=== PATIENT | female | born 1970 | race African-American/Black ===

== ENCOUNTER → 2016-12-21 | Outpatient (CLI) | payer BC, OTHER ==
--- NOTE | 2016-12-22 09:46 | RAD ---
DATE: 12/21/2016 EXAM: DIGITAL SCREEN BILAT W/CAD HISTORY: Routine screening COMPARISON: 12/09/2015 This study was interpreted with the benefit of Computerized Aided Detection (CAD). The breast parenchyma is heterogeneously dense, which could reduce sensitivity of mammography. Breast parenchyma level C. FINDINGS: No new or enlarging breast densities are seen. No suspicious calcifications are evident. IMPRESSION: Stable mammograms without evidence of malignancy. BI-RADS CATEGORY: 1 NEGATIVE RECOMMENDED FOLLOW-UP: 12M 12 MONTH FOLLOW-UP PQRS compliance statement: Patient information was entered into a reminder system with a target due date for the next mammogram. Mammography is a sensitive method for finding small breast cancers, but it does not detect them all and is not a substitute for careful clinical examination. A negative mammogram does not negate a clinically suspicious finding and should not result in delay in biopsying a clinically suspicious abnormality. "Our facility is accredited by the [employer] Mammography [employer]."
== END | disposition home or self-care (01) ==
LOC: MAMMO 14:46
PROVIDERS: ATTEND Family Medicine
DX: Z12.31 Encounter for screening mammogram for malignant neoplasm of breast (principal)
CPT/HCPCS: G0202; 77067

== ENCOUNTER → 2018-01-12 | Outpatient (CLI) | payer BC ==
--- NOTE | 2018-01-13 11:26 | RAD ---
DATE: 01/12/2018 EXAM: MAMMO WINDY SCREENING BILATERAL HISTORY: Routine screening COMPARISON: 12/21/2016 This study was interpreted with the benefit of Computerized Aided Detection (CAD). Breast Density: HETERO The breast parenchyma is heterogenously dense, which could reduce sensitivity of mammography. Breast parenchyma level C. FINDINGS: 2-D and 3-D tomosynthesis imaging was performed in CC and MLO projections. No new or enlarging breast densities are seen. No suspicious microcalcifications are evident. IMPRESSION: Stable mammograms without evidence of malignancy. BI-RADS CATEGORY: 2 BENIGN FINDING(S) RECOMMENDED FOLLOW-UP: 12M 12 MONTH FOLLOW-UP PQRS compliance statement: Patient information was entered into a reminder system with a target due date for the next mammogram. Mammography is a sensitive method for finding small breast cancers, but it does not detect them all and is not a substitute for careful clinical examination. A negative mammogram does not negate a clinically suspicious finding and should not result in delay in biopsying a clinically suspicious abnormality. "Our facility is accredited by the [employer] Mammography [employer]."
== END | disposition home or self-care (01) ==
LOC: MAMMO 13:00
PROVIDERS: ATTEND Family Medicine
DX: Z12.31 Encounter for screening mammogram for malignant neoplasm of breast (principal)
CPT/HCPCS: 77063; 77067

== ENCOUNTER 2018-03-10 17:47 | Emergency (ER) | payer BC ==
[~2018-03-10] VITALS: Ht 162.6 cm; Wt 95.3 kg
[2018-03-10 18:00] VITALS: BP 148/101
[2018-03-10] MEDS ORDERED: LISI-334 PO (18:14)
--- NOTE | 2018-03-10 18:51 | PHYS DOC ---
Past Medical History Past Medical History: Hypertension Past Surgical History: Other Additional Past Surgical Histo: CARPAL TUNNEL Alcohol Use: Occasionally Drug Use: Marijuana Adult General Chief Complaint Chief Complaint: KNEE INJURY HPI HPI Patient is a 48 year old AA female who presents to the emergency room with complaints of right knee pain. Patient states that she fell when she slipped on ice at [employer] week ago and she has had pain in her right knee since. Patient denies any popping of her knee or any instability. States she was seen by her primary care doctor yesterday who x-rayed her right shoulder and told her it was negative for any acute findings. Patient states her doctor did not x- ray her right knee though and that is why she is here. Review of Systems Review of Systems Constitutional: Denies fever or chills [] Musculoskeletal: See history of present illness Integument: Denies rash or skin lesions [] Neurologic: Denies headache, focal weakness or sensory changes [] Allergies Allergies Allergies Coded Allergies Type Severity Reaction Last Updated Verified No Known Drug Allergies 03/10/18 No Physical Exam Physical Exam Constitutional: Well developed, well nourished, no acute distress, non-toxic appearance, obese. [] HENT: Normocephalic, atraumatic, bilateral external ears normal, nose normal. [] Eyes: conjunctiva normal, no discharge. [] Neck: Normal range of motion, no stridor. [] Skin: Warm, dry, no erythema, no rash. [] Extremities: No cyanosis, no clubbing, ROM intact, no edema; right anterior knee tender to palpation, negative stress and valgus testing, negative anterior and posterior drawer testing, no deformity or crepitus Neurologic: Alert and oriented X 3, normal motor function, normal sensory function, no focal deficits noted. [] Psychologic: Affect normal, judgement normal, mood normal. [] Current Patient Data Vital Signs Vital Signs Date Time Temp Pulse Resp B/P (MAP) Pulse Ox O2 Delivery O2 Flow Rate FiO2 03/10/18 18:00 97.8 98 18 148/101 (117) 100 Room Air 97.8 EKG EKG [] Radiology/Procedures Radiology/Procedures R Knee x-ray negative for any acute fracture or dislocation read by Dr. Chamberlain. [] Course & Med Decision Making Course & Med Decision Making Pertinent Labs and Imaging studies reviewed. (See chart for details) Dx: R knee contusion, R knee pain rest, elevate, ice, and wear Jacob wrap provided. Follow up with Dr. Arana if symptoms persist, tylenol or ibuprofen as needed for pain. Return to ER if sx worsen. Patient verbalized an understanding of home care, medications, follow-up, and return to ED instructions and was in agreement with the plan of care. [] Dragon Disclaimer Dragon Disclaimer This electronic medical record was generated, in whole or in part, using a voice recognition dictation system. Departure Departure Impression: Primary Impression: Contusion of right knee, initial encounter Additional Impressions: Right anterior knee pain Fall from slipping on ice Disposition: HOME, SELF-CARE Condition: STABLE Referrals: OTTO REDMOND MD (PCP) CAROLE ARANA MD Patient Instructions: Contusion, [id number]-[id number], Knee Pain, [id number] Additional Instructions: Recommend application of ice, elevation, and rest of affected extremity. Wear the jacob wrap that was placed for comfort. Follow up with Dr. Arana or your PCP if symptoms persist. Return to the ER if your symptoms worsen. Problem Qualifiers Additional Impressions: Fall from slipping on ice Encounter type: initial encounter Qualified Codes: W00.9XXA - Unspecified fall due to ice and snow, initial encounter SAIMA BRUMFIELD APRN Mar 10, 2018 18:51
--- NOTE | 2018-03-10 18:57 | RAD ---
Indication:right knee pain after fall on ice 1 week ago TECHNIQUE: 3 views of the right knee COMPARISON:None FINDINGS: No acute fracture-dislocation. No suprapatellar effusion. Mild tricompartmental osteoarthritis. IMPRESSION: As above. Electronically signed by: Keith Dawn DO (03/10/2018 6:53 PM) [facility]
== END 2018-03-10 19:01 | disposition home or self-care (01) ==
LOC: ER 17:47
DX: S80.01XA Contusion of right knee, initial encounter (principal); I10 Essential (primary) hypertension; W00.0XXA Fall on same level due to ice and snow, initial encounter; Y93.89 Activity, other specified; Y92.89 Other specified places as the place of occurrence of the external cause; Y99.8 Other external cause status
CPT/HCPCS: 73562; 99284

== ENCOUNTER → 2019-02-15 | Outpatient (CLI) | payer BC ==
[~2019-02-15] MED LIST: LISI-334 PO
--- NOTE | 2019-02-15 16:51 | RAD ---
DATE: 02/15/2019 EXAM: MAMMO WINDY SCREENING BILATERAL HISTORY: Routine screening COMPARISON: 01/12/2018, 12/21/2016, 12/09/2015, 11/27/2014 mammographic exams This study was interpreted with the benefit of Computerized Aided Detection (CAD). Breast Density: HETERO The breast parenchyma is heterogenously dense, which could reduce sensitivity of mammography. Breast parenchyma level C. FINDINGS: No suspicious calcific lesion, mass, or distortion. IMPRESSION: Stable BI-RADS CATEGORY: 1 NEGATIVE RECOMMENDED FOLLOW-UP: 12M 12 MONTH FOLLOW-UP PQRS compliance statement: Patient information was entered into a reminder system with a target due date for the next mammogram. Mammography is a sensitive method for finding small breast cancers, but it does not detect them all and is not a substitute for careful clinical examination. A negative mammogram does not negate a clinically suspicious finding and should not result in delay in biopsying a clinically suspicious abnormality. "Our facility is accredited by the [employer] Mammography [employer]."
== END | disposition home or self-care (01) ==
LOC: MAMMO 10:25
PROVIDERS: ATTEND Family Medicine
DX: Z12.31 Encounter for screening mammogram for malignant neoplasm of breast (principal); N64.89 Other specified disorders of breast
CPT/HCPCS: 77063; 77067

== ENCOUNTER → 2019-02-15 | Outpatient (CLI) | payer BC ==
--- NOTE | 2019-02-15 12:09 | RAD ---
EXAM: MRI LEFT KNEE DATE: 02/15/2019 10:30 AM CLINICAL INDICATION: Left knee pain, fall 3 weeks ago COMPARISON: None. TECHNIQUE: Multiplanar, multisequence MRI of the left knee was performed without contrast. FINDINGS: Small left knee joint effusion. Prominent suprapatellar plica. Complex multiloculated Saleh's cyst is seen. Edema tracking inferiorly along the posterior medial lower leg, likely recent partial rupture. ACL and PCL are intact. Small ACL ganglion is incidentally seen. Mild edema about the MCL likely low-grade sprain or reactive signal change. The fibular collateral ligament, biceps femoris, IT band and popliteus are intact. Extensor mechanism is intact. Neutral patellar tracking. Lateral meniscus: Complex tear posterior horn-body lateral meniscus. Medial meniscus: Intact Chondral fissuring at the lateral compartment with subchondral edema and cystic change. Bulky lateral compartment osteophytes are seen. T1 marrow signal is grossly preserved. No evidence for fracture or osteonecrosis. IMPRESSION: 1. Mild increased signal about the MCL, likely low-grade sprain. 2. Multiloculated Saleh's cyst with edema tracking inferiorly, likely recent partial rupture 3. Lateral compartment predominant osteoarthritis with chondromalacia and bulky osteophytes. 4. No definite fracture or osteonecrosis. Electronically signed by: Marcial Cerna MD (02/15/2019 12:06 PM) [id number]
== END | disposition home or self-care (01) ==
LOC: MRI 10:06
PROVIDERS: ATTEND Orthopaedic Surgery
DX: S83.272A Complex tear of lateral meniscus, current injury, left knee, initial encounter (principal); M17.12 Unilateral primary osteoarthritis, left knee; M25.462 Effusion, left knee; M71.22 Synovial cyst of popliteal space [Baker], left knee; M94.262 Chondromalacia, left knee; W19.XXXA Unspecified fall, initial encounter; Y93.89 Activity, other specified; Y92.89 Other specified places as the place of occurrence of the external cause; Y99.8 Other external cause status
CPT/HCPCS: 73721

== ENCOUNTER → 2020-07-08 | Outpatient (CLI) | payer BC ==
[~2020-07-08] MED LIST changes: -LISI-334 PO; +LISI20TA18 PO
--- NOTE | 2020-07-09 16:05 | RAD ---
DATE: 07/08/2020 EXAM: MAMMO WINDY SCREENING BILATERAL HISTORY: Screening COMPARISON: 02/15/2019, 01/12/2018, 12/21/2016 This study was interpreted with the benefit of Computerized Aided Detection (CAD). Breast Density: HETERO The breast parenchyma is heterogenously dense, which could reduce sensitivity of mammography. Breast parenchyma level C. FINDINGS: There is a 8 mm nodule at 2:00, 13 cm posterior to the nipple in the left breast. This is best seen on tomosynthesis views (CC image 26 of 61 and MLO image 20 of 73). No suspicious calcification or architectural distortion in either breast. No mass in the right breast. IMPRESSION: 8 mm nodule at 2:00, 13 cm posterior to the nipple in the left breast. Recommend spot compression CC and MLO views, and possible ultrasound further evaluate. BI-RADS CATEGORY: 0 INCOMPLETE: NEEDS ADDITIONAL IMAGING EVALUATION AND/OR PRIOR MAMMOGRAMS FOR COMPARISON. RECOMMENDED FOLLOW-UP: ADD ADDITIONAL IMAGING PQRS compliance statement: Patient information was entered into a reminder system with a target due date for the next mammogram. Mammography is a sensitive method for finding small breast cancers, but it does not detect them all and is not a substitute for careful clinical examination. A negative mammogram does not negate a clinically suspicious finding and should not result in delay in biopsying a clinically suspicious abnormality. "Our facility is accredited by the [employer] Mammography Program."
== END ==
LOC: MAMMO 13:45
PROVIDERS: ATTEND Family Medicine
DX: Z12.31 Encounter for screening mammogram for malignant neoplasm of breast (principal); N64.89 Other specified disorders of breast
CPT/HCPCS: 77063; 77067

== ENCOUNTER → 2020-07-28 | Outpatient (CLI) | payer BC ==
--- NOTE | 2020-07-28 11:11 | RAD ---
EXAMINATION: MG DIAGNOSTICUNILAT MAMMO, US BREAST LT History: Callback from screening mammogram for left breast mass Comparison: Screening mammogram 07/08/2020. Technique: Left breast spot compression CC and MLO views were obtained. Focused ultrasound of the lef t breast at 2:00 posterior depth was performed.. Findings: Breast Tissue Density C : The breasts are heterogeneously dense, which may obscure small masses. The mass at 2:00, 12-13 cm from the nipple persists on spot compression. Focused ultrasound of the left breast at 2:00 11 cm from the nipple demonstrates an anechoic, circums cribed simple cyst measuring 9 x 8 x 6 cm. There is a second anechoic, circumscribed simple cyst at 2 :30, 12 cm the nipple measuring 1.1 x 0.9 x 0.8 cm. No suspicious mass. IMPRESSION: Benign simple cysts at 2:00 and 2:30, 11 and 12 cm from the nipple in the left breast, correlating wi th the mammographic abnormality. No evidence of malignancy. BI-RADS category 2: Benign findings. RECOMMENDATION: Recommend annual screening mammogram in 12 months. Patient information is entered into the reminder system with a target due date for the next screening mammogram. Mammography is the most sensitive method for finding small breast cancers, but it does not detect the m all and is not a substitute for careful clinical examination. A negative mammogram does not negate a clinically suspicious finding and should not result in delay in biopsying a clinically suspicious a bnormality. "Our facility is accredited by the [employer] Mammography Program." Electronically signed by: Qian Wu MD (07/28/2020 11:08 AM) [id number]
== END ==
LOC: MAMMO 10:38
PROVIDERS: ATTEND Family Medicine
DX: N60.02 Solitary cyst of left breast (principal); R92.8 Other abnormal and inconclusive findings on diagnostic imaging of breast; R92.2 Inconclusive mammogram
CPT/HCPCS: 76641; 77065

== ENCOUNTER 2020-10-17 08:47 | Emergency (ER) | payer BC ==
[~2020-10-17] VITALS: Ht 162.6 cm; Wt 92.7 kg
[2020-10-17 09:39] LABS: BASO # 0.1 x10^3/uL (0.0-0.2); BASO % 1 % (0-3); EOS # 0.2 x10^3/uL (0.0-0.7); EOS % 2 % (0-3); HEMATOCRIT 38.5 % (36.0-47.0); HEMOGLOBIN 13.2 g/dL (12.0-15.5); LYMPH # 2.4 x10^3/uL (1.0-4.8); LYMPH % 25 % (24-48); MEAN CORPUSCULAR HEMOGLOBIN 31 pg (25-35); MEAN CORPUSCULAR HGB CONC 34 g/dL (31-37); MEAN CORPUSCULAR VOLUME 89 fL (79-100); MONO % 11 % (0-9); NEUT % 61 % (31-73); PLATELET COUNT 346 x10^3/uL (140-400); RED BLOOD COUNT 4.31 x10^6/uL (3.50-5.40); RED CELL DISTRIBUTION WIDTH 14.6 % (11.5-14.5); WHITE BLOOD COUNT 9.8 x10^3/uL (4.0-11.0)
[2020-10-17 09:44] LABS: CALCIUM 9.9 mg/dL (8.5-10.1); CREATININE 0.7 mg/dL (0.6-1.0); GFR 107.6; POTASSIUM 3.6 mmol/L (3.5-5.1)
[2020-10-17] MEDS ORDERED: CONTRAST GIVEN. MC PRN (10:00)
[2020-10-17] MEDS ORDERED: IOHEXOL 300 MG/ML 100ML VIAL. IV ONE (10:00)
--- NOTE | 2020-10-17 10:25 | PHYS DOC ---
Past Medical History Past Medical History: Hypertension Past Surgical History: Other Additional Past Surgical Histo: CARPAL TUNNEL Smoking Status: Never Smoker Alcohol Use: None Drug Use: Marijuana General Adult EDM: Chief Complaint: DIZZY/LIGHT HEADED HPI: HPI: Patient is a 50 year old female with history of HTN on lisinopril who presents with dizziness for the past 4 days. Dizziness is made worse by laying down and improves with sitting upright. Worse with head movements. States that if she sits upright for a long period of time vertigo subsides. If she is moving she feels off balance and does have a sensation of vertigo. She states that she has been stumbling sometimes while walking. Denies any problems with coordination in her upper extremities. Denies any speech difficulty, double vision, facial asymmetry, extremity weakness. No history of stroke/CVA in the past Review of Systems: Review of Systems: Constitutional: Denies fever or chills. [] Eyes: Denies change in visual acuity. [] HENT: Denies nasal congestion or sore throat. [] Respiratory: Denies cough or shortness of breath. [] Cardiovascular: Denies chest pain or edema. [] GI: Denies abdominal pain, nausea, vomiting, bloody stools or diarrhea. [] : Denies dysuria. [] Musculoskeletal: Denies back pain or joint pain. [] Integument: Denies rash. [] Neurologic: Reports vertigo, dizziness, difficulty walking. [] Endocrine: Denies polyuria or polydipsia. [] Lymphatic: Denies swollen glands. [] Psychiatric: Denies depression or anxiety. [] Heart Score: C/O Chest Pain: No Risk Factors: Risk Factors: DM, Current or recent (<one month) smoker, HTN, HLP, family history of CAD, obesity. Risk Scores: Score 0 - 3: 2.5% MACE over next 6 weeks - Discharge Home Score 4 - 6: 20.3% MACE over next 6 weeks - Admit for Clinical Observation Score 7 - 10: 72.7% MACE over next 6 weeks - Early Invasive Strategies Current Medications: Current Medications Medications (Trade) Dose Ordered Sig/Renee Start Time Stop Time Status Last Admin Dose Admin Info (CONTRAST GIVEN -- Rx MONITORING) 1 each PRN DAILY PRN 10/17/20 10:00 10/19/20 09:59 Iohexol (Omnipaque 300 Mg/ml) 75 ml 1X ONCE 10/17/20 10:00 10/17/20 10:01 DC 10/17/20 10:14 75 ML Allergies: Allergies: Allergies Coded Allergies Type Severity Reaction Last Updated Verified No Known Drug Allergies 03/10/18 No Physical Exam: PE: Constitutional: Well developed, well nourished, no acute distress, non-toxic appearance. [] HENT: Normocephalic, atraumatic, bilateral external ears normal, oropharynx moist, no oral exudates, nose normal. [] Eyes: PERRLA, EOMI, conjunctiva normal, no discharge. [] Neck: Normal range of motion, no tenderness, supple, no stridor. [] Cardiovascular:Heart rate regular rhythm, no murmur [] Lungs & Thorax: Bilateral breath sounds clear to auscultation [] Abdomen: Bowel sounds normal, soft, no tenderness, no masses, no pulsatile masses. [] Skin: Warm, dry, no erythema, no rash. [] Back: No tenderness, no CVA tenderness. [] Extremities: No tenderness, no cyanosis, no clubbing, ROM intact, no edema. [] Neurologic: Alert and oriented X 3. Alert, oriented to person, place, time. Face is symmetric. No nystagmus. Test of skew normal. EOMs intact. Speech is normal. Cranial nerves III-XII intact. 5/5 strength in bilateral upper and lower extremities in all dermatomes. No dysmetria with iidhms-qz-zobn or nhdz-au-rgid testing. Patient is unable to perform a tight tandem gait. When turning around she falls over to her right but catches herself. [] Psychologic: Affect normal, judgement normal, mood normal. [] Current Patient Data: Labs: Laboratory Tests Test 10/17/20 08:59 10/17/20 09:25 Glucose (Fingerstick) 97 mg/dL (70-99) White Blood Count 9.8 x10^3/uL (4.0-11.0) Red Blood Count 4.31 x10^6/uL (3.50-5.40) Hemoglobin 13.2 g/dL (12.0-15.5) Hematocrit 38.5 % (36.0-47.0) Mean Corpuscular Volume 89 fL (79-100) Mean Corpuscular Hemoglobin 31 pg (25-35) Mean Corpuscular Hemoglobin Concent 34 g/dL (31-37) Red Cell Distribution Width 14.6 % (11.5-14.5) H Platelet Count 346 x10^3/uL (140-400) Neutrophils (%) (Auto) 61 % (31-73) Lymphocytes (%) (Auto) 25 % (24-48) Monocytes (%) (Auto) 11 % (0-9) H Eosinophils (%) (Auto) 2 % (0-3) Basophils (%) (Auto) 1 % (0-3) Neutrophils # (Auto) 6.0 x10^3/uL (1.8-7.7) Lymphocytes # (Auto) 2.4 x10^3/uL (1.0-4.8) Monocytes # (Auto) 1.0 x10^3/uL (0.0-1.1) Eosinophils # (Auto) 0.2 x10^3/uL (0.0-0.7) Basophils # (Auto) 0.1 x10^3/uL (0.0-0.2) Sodium Level 139 mmol/L (136-145) Potassium Level 3.6 mmol/L (3.5-5.1) Chloride Level 100 mmol/L (98-107) Carbon Dioxide Level 29 mmol/L (21-32) Anion Gap 10 (6-14) Blood Urea Nitrogen 14 mg/dL (7-20) Creatinine 0.7 mg/dL (0.6-1.0) Estimated GFR (Cockcroft-Gault) 107.6 Glucose Level 103 mg/dL (70-99) H Calcium Level 9.9 mg/dL (8.5-10.1) Laboratory Tests 10/17/20 09:25 Laboratory Tests 10/17/20 09:25 Vital Signs: Vital Signs Date Time Temp Pulse Resp B/P (MAP) Pulse Ox O2 Delivery O2 Flow Rate FiO2 10/17/20 09:23 86 24 152/98 (116) 100 Room Air 10/17/20 08:50 98.0 98.0 EKG: EKG: Sinus rhythm. Rate 92. Normal axis. Normal intervals. No acute ischemic changes. [] Radiology/Procedures: Radiology/Procedures: [][facility] [address] [place] [address] IMAGING REPORT Signed PATIENT: MEDHAT SPRING ACCOUNT: [id number] : 1970 LOCATION: ER AGE: 50 SEX: F EXAM STATUS: REG ER ORD. PHYSICIAN: ANNE MARIE SANTIZO MD REASON: VERTIGO, ATAXIA PROCEDURE: CT HEAD WO CONTRAST Exam Date: 10/17/2020 9:[address] HEAD/BRAIN WO, CTA HEAD AND NECK W/WO CONTRAST Indication: Reason: VERTIGO, ATAXIA / Spl. Instructions: / History: . TECHNIQUE: Head CT was performed without intravenous contrast. One or more of the following dose reduction techniques were utilized: *Automated exposure control (AEC) *Adjustment of mA and/or kV according to patient size *Use of iterative reconstruction technique *CT scan done according to ALARA, or ALARA/IMAGE GENTLY FINDINGS: The ventricles and sulci are normal for the patient's stated age. There is no evidence of acute intracranial hemorrhage, extra-axial collection, mass effect, midline shift, or acute territorial infarct. No lesion of the skull base or the calvarium is seen. The visualized paranasal sinuses, mastoid air cells and orbits are normal in appearance. IMPRESSION: No evidence for acute intracranial abnormality. Exam Date: 10/17/2020 9:[address] HEAD/BRAIN WO, CTA HEAD AND NECK W/WO CONTRAST Indication: Reason: VERTIGO, ATAXIA / Spl. Instructions: / History: . TECHNIQUE: CT angiogram of the head was performed before and following the administration of nonionic intravenous contrast. Three-dimensional maximal intensity projection reformatted images and source images were created on an independent workstation and reviewed to assist with clinical management. One or more of the following dose reduction techniques were utilized: *Automated exposure control (AEC) *Adjustment of mA and/or kV according to patient size *Use of iterative reconstruction technique *CT scan done according to ALARA, or ALARA/IMAGE GENTLY FINDINGS: The distal vertebral, basilar, distal internal carotid, and proximal anterior/posterior/middle cerebral arteries are patent. No stenotic or occlusive lesion, aneurysm, or arteriovenous malformation identified. The ventricles and sulci are normal for the patient's stated age. There is no evidence of acute intracranial hemorrhage, extra-axial collection, mass effect, midline shift, or acute territorial infarct. No lesion of the skull base or the calvarium is seen. The visualized paranasal sinuses, mastoid air cells and orbits are normal in appearance. IMPRESSION: No evidence of large vessel occlusion. No evidence for acute intracranial abnormality. Exam Date: 10/17/2020 9:[address] HEAD/BRAIN WO, CTA HEAD AND NECK W/WO CONTRAST Indication: Reason: VERTIGO, ATAXIA / Spl. Instructions: / History: Technique: CT angiogram of the neck was performed before and following the administration of nonionic intravenous contrast. Three-dimensional maximum intensity projection reformatted images were created on an independent workstation and reviewed along with source images to assist with clinical management. One or more of the following dose reduction techniques were utilized: *Automated exposure control (AEC) *Adjustment of mA and/or kV according to patient size *Use of iterative reconstruction technique *CT scan done according to ALARA, or ALARA/IMAGE GENTLY Findings: Examination of the aortic arch demonstrates normal origins of the right brachiocephalic, left common carotid and left subclavian arteries. The origin of the right common carotid artery is normal. The common carotid, internal carotid, and external carotid arteries, as well as the carotid bifurcations, are normal bilaterally. The vertebral arteries are normal bilaterally. No evidence of focal stenosis, aneurysmal dilatation, or dissection in the visualized arteries of the neck. Calcified mediastinal and hilar lymph nodes are noted. There is a 4.4 x 2.9 cm calcified right hilar mass, possibly a conglomerate of calcified lymph nodes. Impression: No evidence of large vessel occlusion. 4 cm calcified right hilar mass, possibly a conglomerate of calcified lymph nodes. Additional calcified mediastinal and hilar lymph nodes are noted. Note: Stenosis was evaluated using NASCET criteria. Electronically signed by: Joana Daugherty MD (10/17/2020 11:12 AM) [id number] DICTATED and SIGNED BY: JOANA DAUGHERTY MD DATE: 10/17/20 [id number] Course & Med Decision Making: Course & Med Decision Making Pertinent Labs and Imaging studies reviewed. (See chart for details) Patient 50-year-old female with history of HTN who presents with 4 days of vertigo and difficulty walking. EKG normal. No nystagmus on examination, and patient denies vertigo at time of examination. She does have a large amount of wax pressing against her right eardrum that could be a contributor to her peripheral vertigo, however, her physical exam was concerning for potential central cause. Gait was abnormal with inability to perform a tandem gait with the patient falling to her right with turning around. Will obtain CTA head/neck. [address] WNL. Discussed with neurologist, Dr. Mcdonough, reviewed history, and he feels this is most likely peripheral given its positional nature and with a negative CTA imaging was comfortable with outpatient management and recommended MRI if her symptoms persist. I will asked that she follows up with her PCP next week and return to the emergency department if she develops any diplopia, dysarthria, or weakness. [id number] Disclaimer: Dragon Disclaimer: This electronic medical record was generated, in whole or in part, using a voice recognition dictation system. Departure Departure Impression: Primary Impression: Vertigo Disposition: 01 HOME / SELF CARE / HOMELESS Condition: STABLE Referrals: TOTO REDMOND MD (PCP) Patient Instructions: Vertigo Additional Instructions: Your work-up here was reassuring. I discussed her case with the neurologist, who recommends that you follow-up with your primary care doctor if your symptoms persist. If they continue to persist for more than a week they may consider doing an MRI of your brain for further work-up. If you develop double vision, speech changes, facial asymmetry, weakness, numbness please return to the emergency department for reevaluation. ANNE MARIE SANTIZO MD Oct 17, 2020 10:25
--- NOTE | 2020-10-17 11:14 | RAD ---
Exam Date: 10/17/2020 9:[address] HEAD/BRAIN WO, CTA HEAD AND NECK W/WO CONTRAST Indication: Reason: VERTIGO, ATAXIA / Spl. Instructions: / History: . TECHNIQUE: Head CT was performed without intravenous contrast. One or more of the following dose re duction techniques were utilized: *Automated exposure control (AEC) *Adjustment of mA and/or kV according to patient size *Use of iterative reconstruction technique *CT scan done according to ALARA, or ALARA/IMAGE GENTLY FINDINGS: The ventricles and sulci are normal for the patient's stated age. There is no evidence of acute int racranial hemorrhage, extra-axial collection, mass effect, midline shift, or acute territorial infarc t. No lesion of the skull base or the calvarium is seen. The visualized paranasal sinuses, mastoid ai r cells and orbits are normal in appearance. IMPRESSION: No evidence for acute intracranial abnormality. Exam Date: 10/17/2020 9:[address] HEAD/BRAIN WO, CTA HEAD AND NECK W/WO CONTRAST Indication: Reason: VERTIGO, ATAXIA / Spl. Instructions: / History: . TECHNIQUE: CT angiogram of the head was performed before and following the administration of nonionic intravenous contrast. Three-dimensional maximal intensity projection reformatted images and source i mages were created on an independent workstation and reviewed to assist with clinical management. O ne or more of the following dose reduction techniques were utilized: *Automated exposure control (AEC) *Adjustment of mA and/or kV according to patient size *Use of iterative reconstruction technique *CT scan done according to ALARA, or ALARA/IMAGE GENTLY FINDINGS: The distal vertebral, basilar, distal internal carotid, and proximal anterior/posterior/middle cerebr al arteries are patent. No stenotic or occlusive lesion, aneurysm, or arteriovenous malformation iden tified. The ventricles and sulci are normal for the patient's stated age. There is no evidence of acute int racranial hemorrhage, extra-axial collection, mass effect, midline shift, or acute territorial infarc t. No lesion of the skull base or the calvarium is seen. The visualized paranasal sinuses, mastoid ai r cells and orbits are normal in appearance. IMPRESSION: No evidence of large vessel occlusion. No evidence for acute intracranial abnormality. Exam Date: 10/17/2020 9:[address] HEAD/BRAIN WO, CTA HEAD AND NECK W/WO CONTRAST Indication: Reason: VERTIGO, ATAXIA / Spl. Instructions: / History: Technique: CT angiogram of the neck was performed before and following the administration of nonionic intravenous contrast. Three-dimensional maximum intensity projection reformatted images were creat ed on an independent workstation and reviewed along with source images to assist with clinical manage ment. One or more of the following dose reduction techniques were utilized: *Automated exposure control (AEC) *Adjustment of mA and/or kV according to patient size *Use of iterative reconstruction technique *CT scan done according to ALARA, or ALARA/IMAGE GENTLY Findings: Examination of the aortic arch demonstrates normal origins of the right brachiocephalic, left common carotid and left subclavian arteries. The origin of the right common carotid artery is normal. The co mmon carotid, internal carotid, and external carotid arteries, as well as the carotid bifurcations, a re normal bilaterally. The vertebral arteries are normal bilaterally. No evidence of focal stenosis, aneurysmal dilatation, or dissection in the visualized arteries of the neck. Calcified mediastinal and hilar lymph nodes are noted. There is a 4.4 x 2.9 cm calcified right hilar mass, possibly a conglomerate of calcified lymph nodes. Impression: No evidence of large vessel occlusion. 4 cm calcified right hilar mass, possibly a conglomerate of calcified lymph nodes. Additional calcif ied mediastinal and hilar lymph nodes are noted. Note: Stenosis was evaluated using NASCET criteria. Electronically signed by: Dae Daugherty MD (10/17/2020 11:12 AM) [place] [id number]
[2020-10-17 12:58] VITALS: BP 160/98
--- NOTE | 2020-10-17 15:47 | EKG ---
[facility] [address] [place] [address] Test Date: 2020-10-17 Test Time: 08:56:26 Pat Name: MEDHAT [employer]ING Department: Room: Gender: F Promotional Demonstrator: : 1970 Requested By: ANNE MARIE SANTIZO Order Number: [id number] Reading MD: Measurements Intervals [place] Rate: 92 P: 59 [place]: 182 QRS: 19 QRSD: 70 T: 30 QT: 334 QTc: 418 Interpretive Statements SINUS RHYTHM LEFT ATRIAL ABNORMALITY ABNORMAL ECG RI6.01 No previous ECG available for comparison
== END 2020-10-17 13:04 | disposition home or self-care (01) ==
LOC: ER 08:47
DX: R42 Dizziness and giddiness (principal); I10 Essential (primary) hypertension; M54.2 Cervicalgia; R51.9 Headache, unspecified
CPT/HCPCS: 36415; 70450; 70496; 70498; 80048; 82962; 85025; 93005; 99285; Q9967